=== PATIENT | female | born 1950 | race African-American/Black ===

== ENCOUNTER 2017-09-02 21:28 | Inpatient (IN) | payer OTHER ==
[2017-09-03] MEDS: ONDANSETRON 4 MG INJ IV (01:36)
[2017-09-03] MEDS: morphine 4 MG/ML VIAL IV (01:36)
[2017-09-03] MEDS: SOD CHLORIDE 0.9% 500 ML IV (01:36)
[2017-09-03 01:43] LABS: ABNORMAL IP MESSAGE 1; HEMATOCRIT 35.6 % (37.0-47.0); HEMOGLOBIN 12.4 g/dl (12.0-16.0); MEAN CORPUSCULAR HEMOGLOBIN 33.8 pg (29.0-33.0); MEAN CORPUSCULAR HGB CONC 34.8 g/dl (32.0-37.0); MEAN PLATELET VOLUME 9.8 fl (7.4-10.4); PLATELET COUNT 127 10^3/UL (140-415); RED BLOOD COUNT 3.67 10^6/ul (4.20-5.40); RED CELL DISTRIBUTION WIDTH 13.1 % (11.5-14.5)
[2017-09-03 01:55] LABS: ADD MAN DIFF? YES; POSITIVE DIFF @See below
[2017-09-03 02:06] LABS: ALANINE AMINOTRANSFERASE 28 IU/L (13-69); ALBUMIN 4.8 g/dl (3.3-4.9); ALBUMIN/GLOBULIN RATIO 1.09; ALKALINE PHOSPHATASE 134 IU/L (42-121); ANION GAP 19 (8-16); ASPARTATE AMINO TRANSFERASE 72 IU/L (15-46); BILIRUBIN,INDIRECT 0.4 mg/dl (0-1.1); BILIRUBIN,TOTAL 0.4 mg/dl (0.2-1.3); BLOOD UREA NITROGEN 8 mg/dl (7-20); CARBON DIOXIDE 29 mmol/L (21-31); CHLORIDE 101 mmol/L (97-110); GLUCOSE 107 mg/dl (70-220); LIPASE 41 U/L (23-300); POTASSIUM 3.5 mmol/L (3.5-5.1); SODIUM 145 mmol/L (135-144); TOTAL PROTEIN 9.2 g/dl (6.1-8.1)
[2017-09-03 02:08] LABS: ADD UMIC YES; UR ASCORBIC ACID NEGATIVE (NEGATIVE); UR BILIRUBIN (Dip) NEGATIVE (NEGATIVE); UR BLOOD (Dip) NEGATIVE (NEGATIVE); UR CLARITY CLEAR (CLEAR); UR COLOR STRAW (YELLOW); UR GLUCOSE (Dip) NEGATIVE (NEGATIVE); UR KETONES (Dip) NEGATIVE (NEGATIVE); UR LEUKOCYTE ESTERASE (Dip) TRACE Leu/ul (NEGATIVE); UR NITRITE (Dip) NEGATIVE (NEGATIVE); UR RBC 1 /HPF (0-5); UR SPECIFIC GRAVITY (Dip) 1.006 (1.003-1.030); UR TOTAL PROTEIN (Dip) NEGATIVE (NEGATIVE); UR UROBILINOGEN (Dip) NEGATIVE (NEGATIVE); UR WBC 2 /HPF (0-5)
[2017-09-03] MEDS ORDERED: ACETAMINOPHEN 325 MG TAB PO (02:30)
[2017-09-03] MEDS ORDERED: NACL 0.9% 3 ML SYG IV (02:30)
[2017-09-03] MEDS ORDERED: ONDANSETRON 4 MG TAB PO (02:30)
[2017-09-03] MEDS ORDERED: DOCUSATE SODIUM 100 MG CAP PO (02:30)
[2017-09-03] MEDS ORDERED: BISACODYL (EC) 5 MG TAB PO (02:30)
[2017-09-03 02:32] LABS: ANISOCYTOSIS 1+ (0-0); EOSINOPHILS % (M) 1 % (0-7); GIANT THROMBO% (M) 2 % (0-0); LYMPHOCYTES #M 1.5 10^3/ul (0.8-2.9); LYMPHOCYTES % (M) 51 % (15-51); MONOCYTE #M 0.1 10^3/ul (0.3-0.9); MONOCYTES % (M) 6 % (0-11); PLATELET ESTIMATE DECREASED; POIKILOCYTOSIS 1+ (0-0); SEGMENTED NEUTROPHILS (M) % 42 % (39-77); SMUDGE%M 14 % (0-0)
[2017-09-03] MEDS ORDERED: VANCOMYCIN IV PER PHARMACY XX (03:00)
[2017-09-03] MEDS: SOD CHLORIDE 0.9% 1,000 ML IV (03:29)
[2017-09-03] MEDS: VANCOMYCIN 1.5 GM in SOD CHLORIDE 0.9% 250 ML IVPB (03:32)
[2017-09-03] MEDS: LEVOFLOXACIN 750MG/D5W (PMX) 150 ML IVPB (06:27)
[2017-09-03] MEDS: morphine 2 MG INJ IV ×3 (08:47→21:38)
[2017-09-03] MEDS: AMLODIPINE 10 MG TAB PO (08:48)
[2017-09-03] MEDS: HEPARIN 5,000 UNIT/0.5 ML VIAL SC ×3 (09:00→21:47)
[2017-09-03] MEDS: VANCOMYCIN 1 GM 250 ML IVPB (15:06)
[2017-09-04] MEDS: VANCOMYCIN 1 GM 250 ML IVPB ×2 (04:26→17:52)
[2017-09-04] MEDS: morphine 2 MG INJ IV ×4 (04:40→22:05)
[2017-09-04] MEDS: HEPARIN 5,000 UNIT/0.5 ML VIAL SC ×4 (05:21→21:42)
[2017-09-04 06:40] LABS: ADD MAN DIFF? NO
[2017-09-04 06:44] LABS: ABNORMAL IP MESSAGE 1; BASOPHILS % 0.4 % (0.0-2.0); EOSINOPHILS % 0.4 % (0.0-7.0); HEMOGLOBIN 10.9 g/dl (12.0-16.0); LYMPHOCYTES # 1.2 10^3/ul (0.8-2.9); LYMPHOCYTES % 48.2 % (15.0-51.0); MEAN CORPUSCULAR HEMOGLOBIN 33.9 pg (29.0-33.0); MEAN CORPUSCULAR HGB CONC 34.1 g/dl (32.0-37.0); MEAN CORPUSCULAR VOLUME 99.4 fl (82.0-101.0); MEAN PLATELET VOLUME 9.8 fl (7.4-10.4); MONOCYTE # 0.4 10^3/ul (0.3-0.9); MONOCYTES % 16.5 % (0.0-11.0); NEUTROPHIL # 0.9 10^3/ul (1.6-7.5); NEUTROPHILS % 34.5 % (39.0-77.0); PLATELET COUNT 119 10^3/UL (140-415); RED BLOOD COUNT 3.22 10^6/ul (4.20-5.40); RED CELL DISTRIBUTION WIDTH 13.4 % (11.5-14.5)
[2017-09-04 06:44] LABS: WHITE BLOOD COUNT 2.6 10^3/ul (4.8-10.8)
[2017-09-04] MEDS: LEVOFLOXACIN 750MG/D5W (PMX) 150 ML IVPB (06:45)
[2017-09-04 06:49] LABS: POSITIVE DIFF @See below
[2017-09-04 07:05] LABS: HEMOGLOBIN A1C 4.9 % (0-5.9)
[2017-09-04 07:08] LABS: ALANINE AMINOTRANSFERASE 20 IU/L (13-69); ALBUMIN 3.5 g/dl (3.3-4.9); ALBUMIN/GLOBULIN RATIO 1.09; ALKALINE PHOSPHATASE 76 IU/L (42-121); ANION GAP 14 (8-16); ASPARTATE AMINO TRANSFERASE 34 IU/L (15-46); BILIRUBIN,INDIRECT 0.1 mg/dl (0-1.1); BILIRUBIN,TOTAL 0.1 mg/dl (0.2-1.3); BLOOD UREA NITROGEN 7 mg/dl (7-20); CARBON DIOXIDE 28 mmol/L (21-31); CHLORIDE 106 mmol/L (97-110); CHOL/HDL RATIO 2.1 RATIO; CHOLESTEROL 126 mg/dl (100-200); CREATININE 0.72 mg/dl (0.44-1.00); GLUCOSE 125 mg/dl (70-220); HDL CHOLESTEROL 59 mg/dl (35-98); LDL CHOLESTEROL,CALCULATED 51 mg/dl; POTASSIUM 3.4 mmol/L (3.5-5.1); SODIUM 145 mmol/L (135-144); TOTAL PROTEIN 6.7 g/dl (6.1-8.1); TRIGLYCERIDES 79 mg/dl (0-149)
[2017-09-04] MEDS: AMLODIPINE 10 MG TAB PO (08:58)
[2017-09-04 17:38] LABS: VANCOMYCIN,TROUGH 9.2 ug/ml (10.0-20.0)
[2017-09-05] MEDS: morphine 2 MG INJ IV ×3 (02:09→11:36)
[2017-09-05] MEDS: VANCOMYCIN 1 GM 250 ML IVPB ×2 (02:10→09:10)
[2017-09-05] MEDS: HEPARIN 5,000 UNIT/0.5 ML VIAL SC ×2 (06:00→14:00)
[2017-09-05] MEDS: LEVOFLOXACIN 750MG/D5W (PMX) 150 ML IVPB (06:11)
[2017-09-05] MEDS: AMLODIPINE 10 MG TAB PO (09:09)
== END 2017-09-05 17:47 | disposition home health service (06) | DRG 593 ==
LOC: E/R 21:28 → PP2 09-03 01:36
PROC: 0JDR3ZZ Extraction of Left Foot Subcutaneous Tissue and Fascia, Percutaneous Approach (ICD-10-PCS; principal; 2017-09-04)
DX: L97.529 Non-pressure chronic ulcer of other part of left foot with unspecified severity (principal); C78.7 Secondary malignant neoplasm of liver and intrahepatic bile duct; M86.9 Osteomyelitis, unspecified; Z85.3 Personal history of malignant neoplasm of breast; Z89.421 Acquired absence of other right toe(s); I10 Essential (primary) hypertension; G62.0 Drug-induced polyneuropathy; T45.1X5S Adverse effect of antineoplastic and immunosuppressive drugs, sequela
CPT/HCPCS: 36415; 73630-LT; 73660; 73718; 80053; 80061; 80202; 81001; 83036; 83690; 84443; 85025; 87040; 87070; 93922; 96361; 96374; 96375; 99285-25